=== PATIENT | male | born 1965 | race Two or more races ===

== ENCOUNTER 2017-01-10 19:30 | Emergency (ER) | payer BC ==
[~2017-01-10] VITALS: Ht 162.6 cm; Wt 68.0 kg
[2017-01-10 20:05] VITALS: Ht 162.6 cm; Wt 68.0 kg
[2017-01-10] MEDS ORDERED: IBUPROFEN 600 MG TAB PO ONE (21:00)
[2017-01-10] MEDS ORDERED: DIAZEPAM 5 MG/ML SYG IV ONE (21:00)
[2017-01-10] MEDS ORDERED: DIAZEPAM 5 MG TAB PO ONE (21:30)
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
--- NOTE | 2017-01-10 21:41 | RADRPT ---
PROCEDURE: Lumbar Spine. CLINICAL INDICATION: Back pain. TECHNIQUE: Three views of the lumbar spine. COMPARISON: None available FINDINGS: The lumbar lordosis is preserved without spondylolisthesis. There is a mild age indeterminate compre ssion fracture. No acute fracture or subluxation is seen. There is minimal multilevel endplate osteo phytosis. IMPRESSION: 1. Mild age indeterminate L1 compression fracture. RPTAT: HTAR .Jeff Salinas MD, MD Date Time Electronically viewed and signed by .Jeff Salinas MD, on 01/10/2017 21:40 .R/
[2017-01-10 22:02] LABS: URINE BLOOD (Dip) POC Negative (NEGATIVE)
[2017-01-10] MEDS ORDERED: HYDR-906 PO (23:03)
[2017-01-10] MEDS ORDERED: DIAZ-90 PO (23:04)
[2017-01-10 23:25] VITALS: BP 137/72; PULSE 82; RESP 18; TEMP 98.5
== END 2017-01-10 23:25 | disposition home or self-care (01) ==
LOC: FTE 19:30
DX: S32.010A Wedge compression fracture of first lumbar vertebra, initial encounter for closed fracture (principal); V49.50XA Passenger injured in collision with unspecified motor vehicles in traffic accident, initial encounter
CPT/HCPCS: 72100; 81003; Z7502; Z7610; J3360

== ENCOUNTER 2017-07-24 20:25 | Emergency (ER) | payer BC ==
[~2017-07-24] VITALS: Ht 172.7 cm; Wt 69.0 kg
[~2017-07-24 20:25] MED LIST: DIAZ-90 PO; HYDR-906 PO
[2017-07-24 21:11] VITALS: Ht 172.7 cm; Wt 69.0 kg
--- NOTE | 2017-07-24 23:26 | ERD ---
ER Documentation Chief Complaint Date/Time DATE: 07/24/17 TIME: 23:13 Chief Complaint s/p fall right shoulder pain, right rib pain HPI 51-year-old male who presents emergency department for left shoulder pain, left rib pain, left lower back pain. Stated that he fell from a stairs (3 steps), landed on his left shoulder and left rib. Denies headache, head injury, loss of consciousness, neck pain, throat pain, difficulty swallowing, abdominal pain, nausea, vomiting, constipation, urinary symptoms, loss of bowel and bladder control, numbness or tingling sensation, difficulty walking, recent long travel, fever, chills. Allergies to Plavix. Past medical history of hyperlipidemia. He did that he had a cardiac history with stent placements 2 years ago but not on any medications. Social: Self-employed. Smokes 1 pack of cigarettes a day. Occasional drinks alcoholic beverages. Denies use of illegal drugs ROS All systems reviewed and are negative except as per history of present illness. Medications Home Meds Active Scripts Cyclobenzaprine Hcl* (Cyclobenzaprine Hcl*) 10 Mg Tablet, 10 MG PO Q12 Y for MUSCLE SPASMS, #15 TAB Prov:PASILABAN,KLAR F 07/25/17 Diazepam* (Valium*) 5 Mg Tablet, 5 MG PO Q8, #10 TAB Prov:NURY,YUDI 01/10/17 Hydrocodone/Acetaminophen ([place] 5-325 Tablet) 1 Each Tablet, 1 TAB PO Q6H Y for PAIN, #20 TAB Prov:NURY,YUDI 01/10/17 Allergies Allergies: Coded Allergies: clopidogrel (Verified Allergy, Unknown, 07/24/17) PMhx/Soc History of Surgery: Yes (stent, L shoulder sx, abd sx, ) Anesthesia Reaction: No Hx Neurological Disorder: Yes (chronic back pain) Hx Respiratory Disorders: No Hx Cardiac Disorders: No Hx Psychiatric Problems: No Hx Miscellaneous Medical Probl: No Hx Alcohol Use: Yes Hx Substance Use: No Hx Tobacco Use: Yes Smoking Status: Current every day smoker Physical Exam Vitals Vital Signs Date Time Temp Pulse Resp B/P Pulse Ox O2 Delivery O2 Flow Rate FiO2 07/25/17 02:05 59 16 118/72 100 Room Air 07/24/17 21:11 98.4 62 20 114/81 99 Physical Exam Const: [] Head: Atraumatic Eyes: Normal Conjunctiva ENT: Normal External Ears, Nose and Mouth. Neck: Full range of motion..~ No meningismus. Resp: Clear to auscultation bilaterally. Has left rib tenderness. Left rib is no crepitus. Lung sounds are clear on auscultation bilaterally. Cardio: Regular rate and rhythm, no murmurs Abd: Soft, non tender, non distended. Normal bowel sounds Skin: No petechiae or rashes Back: No midline or flank tenderness Ext: No cyanosis, or edema. Right shoulder is unremarkable. Left shoulder has good and full range of motion but tenderness to palpation to posterior area. Supraspinatus tenderness to the left upper back. Neur: Awake and alert Psych: Normal Mood and Affect Result Diagram: 07/25/17 0015 07/25/17 0015 Results 24 hrs Laboratory Tests Test 07/25/17 00:15 White Blood Count 11.210^3/ul Red Blood Count 4.8010^6/ul Hemoglobin 15.9g/dl Hematocrit 46.0% Mean Corpuscular Volume 95.8fl Mean Corpuscular Hemoglobin 33.1pg Mean Corpuscular Hemoglobin Concent 34.6g/dl Red Cell Distribution Width 12.3% Platelet Count 61933^3/UL Mean Platelet Volume 10.0fl Neutrophils % 65.9% Lymphocytes % 25.6% Monocytes % 6.4% Eosinophils % 1.0% Basophils % 0.6% Nucleated Red Blood Cells % 0.0/100WBC Neutrophils # 7.410^3/ul Lymphocytes # 2.910^3/ul Monocytes # 0.710^3/ul Eosinophils # 0.110^3/ul Basophils # 0.110^3/ul Nucleated Red Blood Cells # 0.010^3/ul Prothrombin Time 12.4Sec Prothrombin Time Ratio 1.0 INR International Normalized Ratio 0.92 Activated Partial Thromboplast Time 32.6Sec Sodium Level 141mmol/L Potassium Level 3.4mmol/L Chloride Level 100mmol/L Carbon Dioxide Level 31mmol/L Anion Gap 13 Blood Urea Nitrogen 25mg/dl Creatinine 1.14mg/dl Glucose Level 88mg/dl Calcium Level 10.1mg/dl Total Bilirubin 0.4mg/dl Direct Bilirubin 0.00mg/dl Indirect Bilirubin 0.4mg/dl Aspartate Amino Transf (AST/SGOT) 31IU/L Alanine Aminotransferase (ALT/SGPT) 55IU/L Alkaline Phosphatase 58IU/L Troponin I < 0.012ng/ml Total Protein 8.6g/dl Albumin 4.6g/dl Globulin 4.00g/dl Albumin/Globulin Ratio 1.15 Current Medications Medications (Trade) Dose Ordered Sig/Andrea Route PRN Reason Start Time Stop Time Status Last Admin Dose Admin Acetaminophen/ Hydrocodone Bitart ([place] ()) 1 tab ONCE ONCE PO 07/25/17 01:30 07/25/17 01:31 DC 07/25/17 01:44 Procedures/MDM 51-year-old male who presents emergency department for left shoulder pain, left rib pain, left lower back pain. Stated that he fell from a stairs (3 steps), landed on his left shoulder and left rib. Denies headache, head injury, loss of consciousness, neck pain, throat pain, difficulty swallowing, abdominal pain, nausea, vomiting, constipation, urinary symptoms, loss of bowel and bladder control, numbness or tingling sensation, difficulty walking, recent long travel, fever, chills. Allergies to Plavix. Past medical history of hyperlipidemia. He did that he had a cardiac history with stent placements 2 years ago but not on any medications. Social: Self-employed. Smokes 1 pack of cigarettes a day. Occasional drinks alcoholic beverages. Denies use of illegal drugs. Physical exam: Right shoulder is unremarkable. Left shoulder has good and full range of motion but tenderness to palpation to posterior area. Supraspinatus tenderness to the left upper back. Has left rib tenderness. Left rib is no crepitus. Lung sounds are clear on auscultation bilaterally. Disease process was explained to the patient. He verbalized understanding and agreed with the diagnostic tests, treatment, plan of care. EKG: Sinus bradycardia with a ventricular rate of 56 bpm. Chest x-ray: No active disease. X-ray of the lumbar spine: No acute fracture or subluxation. 2. Mild chronic anterior L1 compression fracture. X-ray of the right shoulder: No acute fracture or dislocation of the left shoulder. 2. Irregular depression along the lateral aspect of the humeral head, possibly an old Hill-Sachs fracture deformity. Treatment: [place]. Reevaluation: Denies chest pain, abdominal pain, nausea, vomiting. Respirations even and unlabored. Lung sounds are clear to auscultation. No neurovascular deficits. No neurological deficits. Prescription: Flexeril. Follow-up with primary care physician the next 24-48 hours. Come back to emergency department for any new symptoms or any worsening of symptoms. All questions and concerns are answered. Patient verbalized understanding and agreed with the plan of care. Hemodynamically stable on discharge. Departure Diagnosis: Primary Impression: Multiple contusions Additional Impression: Muscle spasm Condition: Stable Additional Instructions: Follow-up with primary care physician the next 24-48 hours. Come back to emergency department for any new symptoms or any worsening of symptoms. All questions and concerns are answered. Patient verbalized understanding and agreed with the plan of care. PADMINI LEE Jul 24, 2017 23:25
[2017-07-25 00:49] LABS: BASOPHIL # 0.1 10^3/ul (0.0-0.1); BASOPHILS % 0.6 % (0.0-2.0); EOSINOPHILS # 0.1 10^3/ul (0.0-0.5); HEMOGLOBIN 15.9 g/dl (14.0-18.0); LYMPHOCYTES # 2.9 10^3/ul (0.8-2.9); LYMPHOCYTES % 25.6 % (15.0-51.0); MEAN CORPUSCULAR HEMOGLOBIN 33.1 pg (29.0-33.0); MEAN CORPUSCULAR HGB CONC 34.6 g/dl (32.0-37.0); MEAN CORPUSCULAR VOLUME 95.8 fl (82.0-101.0); MONOCYTE # 0.7 10^3/ul (0.3-0.9); MONOCYTES % 6.4 % (0.0-11.0); NEUTROPHIL # 7.4 10^3/ul (1.6-7.5); NEUTROPHILS % 65.9 % (39.0-77.0); PLATELET COUNT 224 10^3/UL (140-415); RED CELL DISTRIBUTION WIDTH 12.3 % (11.5-14.5); WHITE BLOOD COUNT 11.2 10^3/ul (4.8-10.8)
--- NOTE | 2017-07-25 01:00 | RADRPT ---
PROCEDURE: XR Chest. CLINICAL INDICATION: Fall. Pain.. TECHNIQUE: PA and lateral chest x-ray. COMPARISON: None. FINDINGS: The cardiomediastinal silhouette is unremarkable. There is no congestive heart failure. There is no focal infiltrate. There is no pleural effusion. There is no pneumothorax no fractures identifi ed. There are degenerative changes of the left shoulder.. IMPRESSION: No active disease. RPTAT: HMVK .Bola Arenas MD, MD Date Time Electronically viewed and signed by .Bola Arenas MD, on 07/25/2017 01:00 .K/
[2017-07-25 01:04] LABS: ALANINE AMINOTRANSFERASE 55 IU/L (13-69); ALBUMIN 4.6 g/dl (3.3-4.9); ALBUMIN/GLOBULIN RATIO 1.15; ALKALINE PHOSPHATASE 58 IU/L (42-121); ANION GAP 13 (8-16); ASPARTATE AMINO TRANSFERASE 31 IU/L (15-46); BILIRUBIN,INDIRECT 0.4 mg/dl (0-1.1); BILIRUBIN,TOTAL 0.4 mg/dl (0.2-1.3); BLOOD UREA NITROGEN 25 mg/dl (7-20); CALCIUM 10.1 mg/dl (8.4-10.2); CARBON DIOXIDE 31 mmol/L (21-31); CHLORIDE 100 mmol/L (97-110); CREATININE 1.14 mg/dl (0.61-1.24); GLUCOSE 88 mg/dl (70-220); POTASSIUM 3.4 mmol/L (3.5-5.1); SODIUM 141 mmol/L (135-144); TOTAL PROTEIN 8.6 g/dl (6.1-8.1)
[2017-07-25 01:06] LABS: INR 0.92; PROTIME 12.4 Sec (12.2-14.2)
[2017-07-25 01:07] LABS: PARTIAL THROMBOPLASTIN TIME 32.6 Sec (25.0-35.0)
--- NOTE | 2017-07-25 01:10 | RADRPT ---
PROCEDURE: XR Shoulder. CLINICAL INDICATION: Left shoulder pain. TECHNIQUE: 4 views of the left shoulder. COMPARISON: None available. FINDINGS: There is no acute fracture or dislocation. There is irregular depression along the lateral aspect o f the humeral head. The coracoclavicular interval is normal. The joint spaces are preserved. There are no periarticular calcifications. The visualized lung is clear. IMPRESSION: 1. No acute fracture or dislocation of the left shoulder. 2. Irregular depression along the lateral aspect of the humeral head, possibly an old Hill-Sachs fr acture deformity. RPTAT: HTAR .Jeff Salinas MD, MD Date Time Electronically viewed and signed by .Jeff Salinas MD, on 07/25/2017 01:10 .R/
--- NOTE | 2017-07-25 01:12 | RADRPT ---
PROCEDURE: Lumbar Spine. CLINICAL INDICATION: Fall, back pain. TECHNIQUE: Three views of the lumbar spine. COMPARISON: 01/10/2017 FINDINGS: The lumbar lordosis is preserved without spondylolisthesis. A mild age indeterminate anterior compre ssion fracture is noted at L1, unchanged. No acute fracture or subluxation is seen. There is minimal endplate osteophytosis at L4-L5. IMPRESSION: 1. No acute fracture or subluxation. 2. Mild chronic anterior L1 compression fracture. RPTAT: HTAR .Jeff Salinas MD, MD Date Time Electronically viewed and signed by .Jeff Salinas MD, on 07/25/2017 01:12 .R/
[2017-07-25 01:17] LABS: TROPONIN-I < 0.012 ng/ml (0.00-0.12)
[2017-07-25] MEDS ORDERED: CYCL-319 PO (01:25)
[2017-07-25] MEDS ORDERED: HYDROCODONE/APAP (10/325) TAB PO ONE (01:30)
[2017-07-25 02:05] VITALS: BP 118/72; PULSE 59; RESP 16
== END 2017-07-25 02:08 | disposition home or self-care (01) ==
LOC: FTE 20:25
DX: S40.012A Contusion of left shoulder, initial encounter (principal); S20.219A Contusion of unspecified front wall of thorax, initial encounter; S30.0XXA Contusion of lower back and pelvis, initial encounter; F17.210 Nicotine dependence, cigarettes, uncomplicated; W10.9XXA Fall (on) (from) unspecified stairs and steps, initial encounter; Y92.9 Unspecified place or not applicable; Z98.61 Coronary angioplasty status
CPT/HCPCS: 36415; 71020; 72100; 73030; 80053; 84484; 85025; 85610; 85730; Z7502; Z7610

== ENCOUNTER → 2019-03-06 | Outpatient (CLI) | payer BC ==
[~2019-03-06] MED LIST changes: +CYCL10TA7 PO; -DIAZ-90 PO; +DIAZ5TAB PO; +HYDR-4011 PO; -HYDR-906 PO; +IOHEXOL 100 ML ONE; +NITROGLYCERIN AEROSOL (4.9 GM) ONE; +SOD CHLORIDE 0.9% 100 ML ONE
== END | disposition home or self-care (01) ==
LOC: C/S 10:09
PROVIDERS: ATTEND Internal Medicine Interventional Cardiology
DX: R94.39 Abnormal result of other cardiovascular function study (principal)
CPT/HCPCS: 75571; 75574; Q9967; Z7610